=== PATIENT | female | born 1985 | race Caucasian/White ===

== ENCOUNTER 2022-02-12 16:53 | Emergency (ER) | payer SELFPAY ==
[2022-02-12 17:06] VITALS: BP 145/97; PULSE 117; RESP 20; TEMP 37.2; O2SAT 98
--- NOTE | 2022-02-12 17:39 | ED.URI ---
HPI - URI/Sore Throat General Chief Complaint: Upper Respiratory Infection Stated Complaint: Sore Throat Time Seen by Provider: 02/12/22 17:54 Source: patient and RN notes reviewed Mode of arrival: ambulatory Limitations: no limitations History of Present Illness HPI Narrative: 36-year-old female presents concern for sore throat, fever, ear pain. Reports symptoms started this morning. Reports a rash on her upper lip. She reports taking ibuprofen without relief. She reports general malaise. Denies fever, chills, aches, sweats, rhinorrhea, nasal congestion, headache, stomach ache, cough MD elicited complaint: sore throat Related Data Home Medications Medication Instructions Recorded Confirmed No Home Medications 02/12/22 02/12/22 Allergies Allergy/AdvReac Type Severity Reaction Status Date / Time azithromycin [From Zithromax] Allergy Unknown Verified 02/12/22 17:30 sulfamethoxazole Allergy Unknown Verified 02/12/22 17:30 [From ] tetanus and diphtheria Allergy Unknown Verified 02/12/22 17:30 toxoids trimethoprim [From ] Allergy Unknown Verified 02/12/22 17:30 Review of Systems Review of Systems: CONSTITUTIONAL: Reports malaise. Denies chills, sweats, or fever. EYES: Denies visual changes, redness, or discharge. ENT: Denies rhinorrhea, congestion, sinus pain. Reports otalgia and sore throat. CARDIOVASCULAR: Denies chest pain, palpitations, or edema. RESPIRATORY: Denies cough. Denies dyspnea. GASTROINTESTINAL: Denies abdominal pain, nausea, vomiting, diarrhea SKIN: Reports rash on her upper lip MUSCULOSKELETAL: Denies myalgia. NEUROLOGIC: Denies headache. All systems reviewed & are unremarkable except as noted in HPI and below PMFSH Comments At time of signature, agree with nursing past medical, surgical, social and family history. There is no relevant family history pertinent to the presenting complaint Exam Narrative: GENERAL: Well-appearing, well-nourished, and in no acute distress. HEAD: Normocephalic EYES: PERRLA, conjunctivae clear ENT: Nares clear. Mucous membranes moist. TM pearly aguirre with sharp light reflex bilaterally; no tragal tenderness. Oropharynx not erythematous without lesions. Tonsils not enlarged and without exudate, no drooling, no hoarseness, no trismus, uvula midline. NECK: Supple. No lymphadenopathy CHEST: Clear to auscultation, breath sounds equal. No wheezing, rhonchi, rales, or stridor. No respiratory distress, speaks in full sentences. HEART: Regular rate and rhythm. No murmur heard. SKIN: Warm, dry, no rash. NEURO: Alert and oriented x3. PSYCH: Normal mood and affect Course Course Emergency Course: Patient is aware of diagnosis, understands and agrees to treatment plan. Anticipatory guidance given. Patient agrees to follow-up as directed and is aware of reasons to seek care at the emergency department. Portions of this record may have been created with voice recognition software Level of Care: Express Care Visit Vital Signs Vital signs: Vital Signs Temperature 98.9 F 02/12/22 17:06 Pulse Rate 117 H 02/12/22 17:06 Respiratory Rate 20 02/12/22 17:06 Blood Pressure 145/97 H 02/12/22 17:06 Pulse Oximetry 98 02/12/22 17:06 Oxygen Delivery Room Air 02/12/22 17:06 Temperature 98.9 F 02/12/22 17:06 Pulse Rate 117 H 02/12/22 17:06 Respiratory Rate 20 02/12/22 17:06 Blood Pressure 145/97 H 02/12/22 17:06 Pulse Oximetry 98 02/12/22 17:06 Oxygen Delivery Room Air 02/12/22 17:06 Reviewed. MDM - URI/Sore Throat MDM Narrative Medical decision making narrative: Differential diagnosis considered: Thurman virus, strep pharyngitis, allergic rhinitis, upper respiratory tract infection, sinusitis, rhinosinusitis, nasopharyngitis. viral pharyngitis, otitis media, otitis externa, pneumonia, bronchitis, viral cough syndrome, viral syndrome, and influenza. Exam findings show no acute concerns or changes; patient is non-toxic
== END 2022-02-12 18:10 | disposition home or self-care (01) ==
PROVIDERS: Emergency Provider Nurse Practitioner
DX: J06.9 Acute upper respiratory infection, unspecified (principal)
CPT/HCPCS: 87081; 87880; 99213; G0463

== ENCOUNTER 2024-02-18 07:28 | Outpatient (CLI) | payer OTHER, SELFPAY ==
--- NOTE | ~2024-02-18 | XR_ITS ---
Left Hand Technique: PA, oblique, and lateral views were obtained. Clinical History: Pain Findings: No acute fracture or dislocation is seen. Osseous alignment is anatomic. Joint spaces are p reserved. Soft tissues are unremarkable. Impression: Unremarkable left hand. Reviewed, dictated and finalized at location M. [employer] Impression: Unremarkable left hand.
== END 2024-02-18 07:29 | disposition home or self-care (01) ==
LOC: MICIMG 07:33
PROVIDERS: PCP Chiropractor; Visit Provider Chiropractor
DX: M79.642 Pain in left hand (principal)
CPT/HCPCS: 73130